=== PATIENT | female | born 1985 | race African-American/Black ===

== ENCOUNTER 2021-05-26 07:57 | Outpatient (CLI) | payer BC, OTHER ==
[2021-05-26 16:40] LABS: *BILIRUBIN,URIN NEGATIVE (NEGATIVE); *BLOOD, URINE NEGATIVE (NEGATIVE); *CLARITY,URINE CLEAR (CLEAR); *COLOR,URINE YELLOW (YELLOW); *KETONES,URINE TRACE (NEGATIVE); *UROBILINOGEN,URINE 0.2 E.U./dl (NORMAL); LEUKOCYTE ESTERASE ,URINE NEGATIVE (NEGATIVE); NITRITE, URINE NEGATIVE (NEGATIVE); PH,URINE 5.5 (5.0-8.0); UGLUCOSE NEGATIVE (NEGATIVE)
[2021-05-26 16:45] LABS: HEMATOCRIT 42.5 % (31.2-41.9); MEAN CORPUSCULAR HEMOGLOBIN 27.6 uug (24.7-32.8); MEAN CORPUSCULAR VOLUME 86.9 fL (75.5-95.3); PLATELET COUNT (AUTO) 237 K/uL (179-408)
[2021-05-26 17:02] LABS: THYROID STIMULATING HORMONE 1.749 mIU/mL (0.358-3.740)
[2021-05-26 17:18] LABS: BILIRUBIN,TOTAL 0.2 mg/dL (0.2-1.0); CREATININE 0.8 mg/dL (0.6-1.3); MAGNESIUM 2.1 mg/dL (1.8-2.4); POTASSIUM 4.4 mmol/L (3.5-5.1); TOTAL PROTEIN, SERUM 7.6 g/dL (6.4-8.2)
== END 2021-05-26 23:59 | disposition home or self-care (01) ==
LOC: LAB 07:57
PROVIDERS: ATTEND Internal Medicine
DX: E66.9 Obesity, unspecified (principal); D72.820 Lymphocytosis (symptomatic); R20.0 Anesthesia of skin; Z00.00 Encounter for general adult medical examination without abnormal findings
CPT/HCPCS: 36415; 82306; 82746; 83550; 83735; 84443; 84480; 85025; 85651; 86140

== ENCOUNTER 2021-11-20 19:21 | Emergency (ER) | payer BC, OTHER ==
[~2021-11-20] VITALS: Ht 162.6 cm; Wt 89.4 kg
--- NOTE | 2021-11-20 20:45 | NUR ---
Patient discharged to home in stable condition. Written and verbal after care instructions given. Patient verbalizes understanding of instructions. Stressed follow up or return to ER for worsening s/s. pt ambulated with steady gait. denies pain. no SOB. no chest pain. afebrile
[2021-11-20 20:46] VITALS: BP 121/86
== END 2021-11-20 20:54 | disposition home or self-care (01) ==
LOC: ER 19:23
DX: J02.9 Acute pharyngitis, unspecified (principal)
CPT/HCPCS: 86403; 87070; A4663

== ENCOUNTER 2022-01-25 08:57 | Outpatient (CLI) | payer BC, OTHER ==
[2022-01-26 05:07] LABS: HEPATITIS A AB, IgM Negative (Negative); HEPATITIS B SURFACE AG Negative (Negative)
[2022-01-27 23:07] LABS: HERPES SIMPLEX VIRUS 1& 2 IGM <0.91 Ratio (0.00-0.90)
== END 2022-01-25 23:59 | disposition home or self-care (01) ==
LOC: LAB 08:57
DX: Z11.3 Encounter for screening for infections with a predominantly sexual mode of transmission (principal)
CPT/HCPCS: 36415; 86592; 86694; 86705; 86709; 86803; 87806

== ENCOUNTER 2022-08-12 08:01 | Outpatient (CLI) | payer BC ==
[2022-08-12 13:29] LABS: *BILIRUBIN,URIN NEGATIVE (NEGATIVE); *BLOOD, URINE NEGATIVE (NEGATIVE); *CLARITY,URINE CLEAR (CLEAR); *COLOR,URINE YELLOW (YELLOW); *KETONES,URINE NEGATIVE (NEGATIVE); *UROBILINOGEN,URINE 0.2 E.U./dl (NORMAL); LEUKOCYTE ESTERASE ,URINE NEGATIVE (NEGATIVE); NITRITE, URINE NEGATIVE (NEGATIVE); UGLUCOSE NEGATIVE (NEGATIVE)
[2022-08-12 14:47] LABS: THYROID STIMULATING HORMONE 1.756 mIU/mL (0.358-3.740)
[2022-08-12 14:50] LABS: BILIRUBIN,TOTAL 0.1 mg/dL (0.2-1.0); CREATININE 0.9 mg/dL (0.6-1.3); MAGNESIUM 1.9 mg/dL (1.8-2.4); POTASSIUM 4.1 mmol/L (3.5-5.1); TOTAL PROTEIN, SERUM 7.5 g/dL (6.4-8.2); URIC ACID 3.5 mg/dL (2.6-6.0)
[2022-08-12 15:39] LABS: HEMATOCRIT 40.5 % (31.2-41.9); MEAN CORPUSCULAR HEMOGLOBIN 27.8 uug (24.7-32.8); MEAN CORPUSCULAR VOLUME 84.7 fL (75.5-95.3); PLATELET COUNT (AUTO) 296 K/uL (179-408)
== END 2022-08-12 23:59 | disposition home or self-care (01) ==
LOC: LAB 08:01
PROVIDERS: ATTEND Orthopaedic Surgery Adult Reconstructive Orthopaedic Surgery
DX: F32.A Depression, unspecified (principal); E55.9 Vitamin D deficiency, unspecified
CPT/HCPCS: 36415; 82306; 83550; 83735; 84443; 84480; 84550; 85025; 85651; 86140

== ENCOUNTER 2022-11-08 07:59 | Outpatient (CLI) | payer BC | END 2022-11-08 23:59 | disposition home or self-care (01) | LOC: LAB 07:59 → RAD 23:59 | PROVIDERS: ATTEND Internal Medicine | DX: Z11.59 Encounter for screening for other viral diseases (principal); Z11.1 Encounter for screening for respiratory tuberculosis | CPT/HCPCS: 36415; 71046; 86480; 86762 ==